=== PATIENT | female | born 2000 ===

== ENCOUNTER 2021-01-06 20:27 | Outpatient (CLI) | payer SELFPAY | END 2021-01-06 20:28 | disposition E | LOC: EMS 20:27 | DX: I46.8 Cardiac arrest due to other underlying condition (principal); T14.91XA Suicide attempt, initial encounter; W13.1XXA Fall from, out of or through bridge, initial encounter; Y93.89 Activity, other specified; Y92.89 Other specified places as the place of occurrence of the external cause ==